=== PATIENT | female | born 1990 ===

== ENCOUNTER 2017-03-25 18:56 | Emergency (ER) | payer OTHER ==
[2017-03-25 19:13] VITALS: PULSE 62; RESP 20
[2017-03-25] MEDS ORDERED: ONDANSETRON 4 MG ODT BU ONE (19:22)
[2017-03-25] MEDS ORDERED: ONDANSETRON 4 MG ODT ONE (19:25)
[2017-03-25] MEDS ORDERED: KETOROLAC TROMETHAMINE 30 MG/ML SOL IM ONE (19:32)
[2017-03-25] MEDS ORDERED: KETOROLAC TROMETHAMINE 30 MG/ML SOL ONE (19:33)
[2017-03-25 19:38] LABS: APPEARANCE,URINE Clear; BILIRUBIN,URINE NEGATIVE (NEGATIVE); COLOR,URINE Light yellow; GLUCOSE, URINE (UA) NEGATIVE (NEGATIVE); KETONES,URINE NEGATIVE (NEGATIVE); LEUKOCYTE ESTERASE ,URINE NEGATIVE (NEGATIVE); NITRATE,URINE NEGATIVE (NEGATIVE); OCCULT BLOOD,URINE NEGATIVE (NEG-TRACE); UROBILINOGEN,URINE 0.2 (0.2-1.0 EU)
[2017-03-25 19:48] LABS: RBC,URINE NEGATIVE (0-3AV/HPF); WBC,URINE NEGATIVE (0-5AV/HPF)
[2017-03-25 19:50] LABS: AMPHETAMINES NEGATIVE (NEGATIVE); METHADONE NEGATIVE (NEGATIVE); OPIATES(OP13) NEGATIVE (NEGATIVE); OXYCODONE(OXY) NEGATIVE (NEGATIVE); PROPOXYPHENE(PPX) NEGATIVE (NEGATIVE); TRICYCLIC ANTIDEPRESSANTS NEGATIVE (NEGATIVE)
[2017-03-25 19:59] VITALS: BP 117/74; TEMP 98; O2SAT 100
[2017-03-25] MEDS ORDERED: CYCLOBENZAPRINE 10 MG TAB PO ONE (20:05)
[2017-03-25] MEDS ORDERED: CYCLOBENZAPRINE 10 MG TAB ONE (20:07)
== END 2017-03-25 20:18 | disposition home or self-care (01) | DRG 552 ==
LOC: ED 18:56
DX: M54.5 Low back pain (principal); F12.10 Cannabis abuse, uncomplicated; R35.0 Frequency of micturition
CPT/HCPCS: 80305; 81001; 99283; J1885